=== PATIENT | female | born 1960 | race Caucasian/White ===

== ENCOUNTER 2018-07-20 10:04 | Day surgery (SDC) | payer OTHER ==
[2018-07-20] VITALS (12 sets, daily range): BP systolic 90–150; BP diastolic 48–72; PULSE 77–96; RESP 14–27; Ht 144.8 cm; Wt 57.4 kg
[~2018-07-20] VITALS: Ht 144.8 cm; Wt 57.4 kg
[~2018-07-20 10:04] MED LIST: DESFLURANE 15 MIN ONE
[2018-07-20] MEDS ORDERED: POLYMYXIN/BACITRACIN 1L IRRIG ONE (13:18)
[2018-07-20] MEDS ORDERED: LIDOCAINE 1% (MPF) 30 ML INJ ONE (13:18)
[2018-07-20] MEDS ORDERED: BUPIVACAINE 0.5% (SDV) 30 ML INJ ONE (13:18)
[2018-07-20] MEDS ORDERED: POVIDONE IODINE 10% 28.4 GM OINT ONE (13:18)
--- NOTE | 2018-07-20 13:18 | PREAC ---
Date/Time of Note Date/Time of Note DATE: 07/20/18 TIME: 13:16 Anesthesia Eval and Record Evaluation Time Pre-Procedure Interview DATE: 07/20/18 TIME: 13:16 Age 58 Sex female NPO: 8 hrs Preoperative diagnosis bunion deformity L foot Planned procedure Osteotomy and bunionectomy w/ fixation 1st metatarsal L foot Past Medical History Past Medical History: None Surgery & Anesthesia Issues No known issue Meds Anticoagulation: No Beta Georges within 24 hr: No Reason Beta Georges not given: Pt. not on B-Georges No Active Prescriptions or Reported Meds Meds reviewed: Yes Allergies Coded Allergies: No Known Allergy (Unverified , 07/20/18) Allergies Reviewed: Yes Labs/Studies Labs Reviewed: Reviewed by anesthesiologist test: N/A Studies: ECG (nsr, nml), CXR (no active disease) Pre-procedure Exam Last vitals Vital Signs Date Temp Pulse Resp B/P (MAP) Pulse Ox O2 O2 Flow FiO2 Time Delivery Rate 07/20/18 98.5 87 14 136/63 99 Room Air 12:27 (87) Airway: Adequate mouth opening, Adequate thyromental dist Mallampati: Mallampati II Teeth: Normal Lung: Normal Heart: Normal ASA Physical Status ASA physical status: 1 Emergency: None Planned Anesthetic General/MAC: ETT Pre-operative Attestations Prior to commencing anesthesia and surgery, the patient was re-evaluated, there was verification of: *The patient's identity *The results of appropriate recent lab work and preoperative vital signs *The above evaluation not changing prior to induction *Anesthetic plan, risk benefits, alternative and complications discussed with p atient/family; questions answered; patient/family understands, accepts and wishes to proceed. .Net Programmer used ZULEMA CARIAS July 20, 2018 13:18
--- NOTE | 2018-07-20 13:25 | HPN ---
Date/Time of Note Date/Time of Note DATE: 07/20/18 TIME: 13:25 Interval H&P Admission Note Pt. seen H&P reviewed: No system changes ABISAI COLLINS DPM July 20, 2018 13:25
[2018-07-20] MEDS ORDERED: PROPOFOL 40 ML ONE (13:41)
[2018-07-20] MEDS ORDERED: CEFAZOLIN 1 GM INJ ONE (13:41)
[2018-07-20] MEDS ORDERED: MIDAZOLAM 1 MG/ML 2 ML INJ ONE (13:42)
[2018-07-20] MEDS ORDERED: FAMOTIDINE 20 MG INJ ONE (13:42)
[2018-07-20] MEDS ORDERED: ONDANSETRON 4 MG INJ ONE (13:42)
[2018-07-20] MEDS ORDERED: FENTAnyl 50 MCG/ML VIAL ONE (13:42)
[2018-07-20] MEDS ORDERED: POLYMYXIN/BACITRACIN 1L IRRIG IRR ONE (13:50)
[2018-07-20] MEDS ORDERED: BUPIVACAINE 0.5% (MPF) 30 ML INJ INJ ONE (14:36)
[2018-07-20] MEDS ORDERED: KETOROLAC 30 MG INJ ONE (14:50)
--- NOTE | 2018-07-20 15:11 | SIPON ---
Date/Time of Note Date/Time of Note DATE: 07/20/18 TIME: 15:07 Operative Report Preoperative Diagnosis Hallux valgus with bunion formation left foot hammertoe second left foot Postoperative Diagnosis Name postop diagnosis same Operation/Procedure Performed Osteotomy and bunionectomy with fixation first metatarsal left foot Arvind osteotomy with fixation proximal phalanx hallux left foot a active shield applied over the first metatarsal and a hammertoe second left foot Surgeon see signature line front desk assistant None Anesthesia: general Estimated blood loss: minimal Transfusion Required none Specimen Bone Grafts/Implants ` Graft specimen a bone fixation by Konstantin screw first met a right W EVERARDO T staple 8 x 8 left and active shield implant on the first metatarsal none Complications none ABISAI COLLINS DPM July 20, 2018 15:11
[2018-07-20] MEDS ORDERED: ONDANSETRON 4 MG INJ IV PRN (15:30)
[2018-07-20] MEDS ORDERED: HYDROmorphONE 1 MG/5 ML IV SYRINGE IV PRN ×3 (15:30)
[2018-07-20] MEDS ORDERED: OXYCODONE/ACETAMINOPHEN (5/325) TAB PO PRN ×2 (15:30)
[2018-07-20] MEDS ORDERED: HYDROmorphONE 1 MG/5 ML IV SYRINGE IV ONE (15:33)
--- NOTE | 2018-07-20 16:36 | PREOPHP ---
DATE OF ADMISSION: 07/20/2018 HISTORY OF PRESENT ILLNESS: The patient is being admitted to the hospital for elective foot surgery. The patient's treatment was unsuccessful. The patient has been explained surgery, complications, a lternatives, and elected to have a foot surgery. The patient is having pain on the bunion on second toe on the left foot. ALLERGIES: THE PATIENT DENIES ANY. MEDICATIONS: The patient has been taking Motrin. REVIEW OF SYSTEMS: Negative heart, lung, liver, kidney and thyroid. Negative diabetes. Negative fo r smoking or alcohol. PHYSICAL EXAMINATION: See any other pertinent history and upper extremity physical exam by [facility]. EXTREMITIES: Lower extremity shows DP and PT equal and regular. NEUROLOGICAL: Negative for pathology. DERMATOLOGICAL: Negative for pathology. MUSCULOSKELETAL x-ray findings show a hallux abductovalgus with bunion deformity, left foot; hammerto e, second, left foot. FINAL DIAGNOSES: 1. Hallux abductovalgus with bunion deformity, left foot. 2. Hammertoe, second, left foot. Dictated By: ABISAI PERDOMO/MIMI Conf#: [id number] DID#: [id number]
--- NOTE | 2018-07-20 17:47 | OPR ---
DATE OF OPERATION: 07/20/2018 PREOPERATIVE DIAGNOSES: 1. Hallux abductovalgus with bunion, left foot. 2. Hammertoe, 2nd left foot. POSTOPERATIVE DIAGNOSES: 1. Hallux abductovalgus with bunion, left foot. 2. Hammertoe, 2nd left foot. PROCEDURES: Osteotomy and bunionectomy with fixation, left 1st metatarsal; Arvind osteotomy with fixat ion proximal phalanx, hallux, left hammertoe correction, 2nd left and application of Actishield. SURGEON: Abisai Vance DPM DESCRIPTION OF PROCEDURE: The patient was brought to the surgical suite, placed in the supine positi on. The patient is under general anesthesia. The patient is sterile prepped and draped and the find ings were consistent with the pre and postoperative diagnoses. The first incision was a dorsomedial longitudinal incision over the 1st metatarsophalangeal joint. Using sharp and blunt dissection, the incision was carried deep. The Bovie was used as necessary. The longitudinal capsulotomy was made i n the head of 1st metatarsal dorsally and medially was freed and also the base of the proximal phalan x laterally was freed and remodeled. The medial eminence of the 1st metatarsal was then resected. T he area was cleansed and then a horizontal V-osteotomy was made with the apex distal and base going p roximally going medially to lateral through and through it at 60 degrees angle dorsal and plantar. T he capital fragment was then moved laterally, impacted upon the shaft. The overhang of the shaft was resected. A K-wire was placed over the osteotomy site and measured and 10 mm x 2.5 mm headless scre w was placed over the osteotomy site and measured. Konstantin screw was placed and the osteotomy site w as held solid. Now attention was turned to the proximal phalanx within the incision being lengthened at the shaft and the proximal phalanx being freed and Arvind osteotomy which was made with the apex go ing laterally and the base medially at the widest point of the base was approximately 3 mm. The impa ction of the distal against the proximal aspect of the proximal phalanx was then done and Burger 3 x 8 staple was placed over the osteotomy site and held in place. The area was then cleansed and preope rative condition having been relieved. The Actishield was placed over the 1st metatarsal and then Vi cryl 3-0 was used to suture the tissue and the skin was coaptated using 5-0 Nylon. Next attention wa s turned to the 2nd digit where longitudinal incision was made over the 2nd digit using sharp and sushant nt dissection, the incision was carried deep. Head of proximal phalanx freed of its attachment and r esected at its surgical neck. The area was cleansed and subcutaneously coaptated using 3-0 Vicryl. The skin was coapted using 5-0 Nylon. A stab tenotomy was used to cut the extensor digitorum longus tendon and extensor expansion. This was coaptated by 5-0 Nylon. All incisions were injected with 0. 5% Marcaine and the incisions were then dressed using 1/2-inch Steri-Strips, Betadine ointment, 4 x 4 's impregnated with Betadine solution and Nehemiah with an outer layer of Coban made into a semi-nina sive dressing. The patient tolerated surgery well and was returned to recovery room in satisfactory condition with minimum blood loss and no complications. Dictated By: ABISAI PERDOMO/MIMI Conf#: [id number] DID#: [id number]
--- NOTE | 2018-07-20 17:55 | PAC ---
Date/Time of Note Date/Time of Note DATE: 07/20/18 TIME: 17:53 Post-Anesthesia Notes Post-Anesthesia Note Last documented vital signs Vital Signs Date Temp Pulse Resp B/P Pulse Ox O2 O2 Flow FiO2 Time (MAP) Delivery Rate 07/20/18 97.1 99.5 77 77 16 17 139/69 98 98 Room 15:57 150 (92) 90/ Air Face 6 48 mask 6L Activity: WNL Respiratory function: WNL Cardiovascular function: WNL Mental status: Baseline Pain reasonably controlled: Yes Hydration appropriate: Yes Nausea/Vomiting absent: Yes ZULEMA CARIAS July 20, 2018 17:55
== END 2018-07-20 17:06 | disposition home or self-care (01) ==
LOC: SDS 10:04
PROVIDERS: ATTEND Podiatrist
DX: M20.12 Hallux valgus (acquired), left foot (principal); M21.612 Bunion of left foot; M20.42 Other hammer toe(s) (acquired), left foot
CPT/HCPCS: 28285; 28299; J0690; J1170; J1885; J2250; J2405; J3010; Z7610; 88304; 88311